=== PATIENT | female | born 1945 | race Caucasian/White ===

== ENCOUNTER 2022-08-30 19:02 | Emergency (ER) | payer OTHER, MEDICARE ==
[2022-08-30] MEDS ORDERED: Lidocaine 1% w/Epinephrine 1:100K 20 ML VIAL ONE (19:26)
[2022-08-30] MEDS ORDERED: Bacitracin 1 PK ONE (19:29)
[2022-08-30] MEDS ORDERED: Boostrix 0.5 ML (Tdap) VIAL (>/=7 yrs of age) ONE (19:29)
== END 2022-08-30 21:18 | disposition home or self-care (01) ==
LOC: NAV ERS 19:02
DX: S51.012A Laceration without foreign body of left elbow, initial encounter (principal); S70.02XA Contusion of left hip, initial encounter; M48.00 Spinal stenosis, site unspecified; E03.9 Hypothyroidism, unspecified; E78.00 Pure hypercholesterolemia, unspecified; Z79.899 Other long term (current) drug therapy; W01.0XXA Fall on same level from slipping, tripping and stumbling without subsequent striking against object, initial encounter
CPT/HCPCS: 12001; 90471; 90715

== ENCOUNTER 2022-09-12 13:46 | Emergency (ER) | payer MEDICARE | END 2022-09-12 15:12 | disposition home or self-care (01) | LOC: NAV ERS 13:46 | DX: S51.012D Laceration without foreign body of left elbow, subsequent encounter (principal); Z48.02 Encounter for removal of sutures; W19.XXXD Unspecified fall, subsequent encounter ==